=== PATIENT | female | born 1980 | race Two or more races ===

== ENCOUNTER 2019-10-06 15:33 | Emergency (ER) | payer SELFPAY ==
[~2019-10-06] VITALS: Ht 170.2 cm; Wt 88.6 kg
[2019-10-06 16:27] LABS: BASOPHILS # (AUTO) 0.03 x10^3/uL (0-0.1); BASOPHILS % (AUTO) 0 % (0-1); EOSINOPHILS % (AUTO) 0 % (1-7); LYMPHOCYTES # (AUTO) 1.19 x10^3/uL (1-3.4); LYMPHOCYTES % (AUTO) 13 % (22-44); MD NO; MEAN CORPUSCULAR HEMOGLOBIN 30.5 pg (27.0-34.8); MEAN CORPUSCULAR HGB CONC 33.4 g/dL (32.4-35.8); MEAN CORPUSCULAR VOLUME 91.1 fL (80-100); MEAN PLATELET VOLUME 8.1 fL (7.4-10.4); MONOCYTES # (AUTO) 0.26 x10^3/uL (0.2-0.8); MONOCYTES % (AUTO) 3 % (2-9); NEUTROPHILS # (AUTO) 8.02 x10^3/uL (1.8-6.8); NEUTROPHILS % (AUTO) 85 % (42-75); PLATELET COUNT 378 x10^3/uL (130-400); RED BLOOD COUNT 5.38 x10^6/uL (3.82-5.3); RED CELL DISTRIBUTION WIDTH 11.7 % (9.6-15.2)
[2019-10-06] MEDS ORDERED: SODIUM CHLORIDE FLUSH 10ML SYR IVF ONE (16:30)
[2019-10-06 16:36] LABS: ALANINE AMINOTRANSFERASE 28 U/L (12-78); ALBUMIN 3.9 g/dL (3.4-5.0); ANION GAP 11 mmol/L (5-15); CALCIUM 8.7 mg/dL (8.5-10.1); CHLORIDE 104 mmol/L (98-107); CREATININE 0.67 mg/dL (0.55-1.02)
--- NOTE | 2019-10-06 16:36 | NUR ---
Task RN: passive warming measures applied
[2019-10-06 16:38] LABS: ALKALINE PHOSPHATASE 63 U/L (45-117); BILIRUBIN,TOTAL 0.8 mg/dL (0.2-1.0)
--- NOTE | 2019-10-06 17:21 | NUR ---
[facility] sent Provider to bedside to explain poc With multiple warming measures (changing diaphoresis soaked down, heater in place, 6 warm blankets) temp improved to 97.9
[2019-10-06 17:39] LABS: MICROSCOPIC INDICATED
[2019-10-06 17:58] LABS: CULTURE INDICATED? YES
[2019-10-06] MEDS ORDERED: LORazepam 1MG TABLET ONE (17:58)
[2019-10-06] MEDS ORDERED: LORazepam 1MG TABLET PO ONE (18:00)
--- NOTE | 2019-10-06 18:03 | NUR ---
medicated per emar
--- NOTE | 2019-10-06 18:19 | NUR ---
With reassessment patient reports "I feel alot better. Can I go home?" Provider made aware Vitals stable on lunchroom monitor Patient provided with list of detox resources in town To dispo in the care of her mother
[2019-10-06 18:34] VITALS: BP 112/73
[2019-10-06 20:00] LABS: AMPHETAMINE SCREEN, URINE Negative (Negative); BARBITURATE SCREEN, URINE Negative (Negative); BENZODIAZEPINE SCREEN, URINE Negative (Negative); CANNABINOID SCREEN, URINE Positive (Negative); COCAINE SCREEN, URINE Negative (Negative); METHADONE SCREEN, URINE Negative (Negative); OPIATE SCREEN, URINE Negative (Negative)
== END 2019-10-06 18:37 | disposition home or self-care (01) ==
LOC: ED 18:31
DX: F11.23 Opioid dependence with withdrawal (principal)
CPT/HCPCS: 36415; 80053; 80307; 81001; 85025; 87086; 93005; 99284